=== PATIENT | female | born 1925 | race Caucasian/White ===

== ENCOUNTER → 2017-01-16 | Outpatient (CLI) | payer MEDICARE | END | disposition home or self-care (01) | LOC: GMA 18:08 | PROVIDERS: ATTEND Nurse Practitioner Family | DX: N30.00 Acute cystitis without hematuria (principal) ==

== ENCOUNTER → 2017-04-03 | Outpatient (CLI) | payer MEDICARE | END | disposition home or self-care (01) | LOC: GMAL 10:39 | PROVIDERS: ATTEND Family Medicine | DX: D51.3 Other dietary vitamin B12 deficiency anemia (principal); E55.9 Vitamin D deficiency, unspecified ==

== ENCOUNTER 2017-04-18 13:07 | Emergency (ER) | payer MEDICARE ==
[2017-04-18 13:46] VITALS: TEMP 97.7; O2SAT 95
--- NOTE | 2017-04-18 14:04 | ED.PDOC ---
History of Present Illness - General Chief Complaint: Bite: Animal/Insect/Human Stated Complaint: dog bite to left index finger Time Seen by Provider: 04/18/17 13:57 Source: patient Exam Limitations: no limitations - History of Present Illness Initial Comments: Enriqueta Reddy 89 y/o female stated that she was trying to hold stray dog that was badly injured and she was bitten on her left index finger;stated dog looks like a terrier and was brought to the vet for quarantine. Occurred: just prior to arrival Allergies/Adverse Reactions: Allergies Ciprofloxacin [From Cipro] Allergy (Mild, Unverified 06/16/13 13:05) Clarithromycin [From Biaxin] Allergy (Mild, Unverified 06/16/13 13:05) Statins Allergy (Mild, Unverified 06/16/13 13:05) Doxycycline Allergy (Verified 04/18/17 13:46) Home Medications: Ambulatory Orders Aspirin [Aspirin/Enteric] 81 mg PO AM 06/19/13 Cobalamine Combinations [B-12 1000 1000-400 Mcg] 1 sub SL AM 06/19/13 Ezetimibe [Zetia] 10 mg PO AM 06/19/13 Fish Oil 1,200 mg PO AM 06/19/13 Lisinopril 10 mg PO AM 06/19/13 Omeprazole Magnesium [Prilosec Otc] 20 mg PO AM 06/19/13 HYDROcodone 5MG/APAP 325MG [[place] 5/325] 1 tab PO .Q4H PRN #0 tab 07/15/13 Meclizine HCl [Antivert] 12.5 mg PO Q12H #10 tab 08/10/16 Past Medical History (General) - Patient Medical History Hx Seizures: No Hx Stroke: Yes Hx Asthma: No Hx of COPD: No Hx Cardiac Disorders: No Hx Congestive Heart Failure: No Hx Pacemaker: No Hx Hypertension: Yes Hx Diabetes: No Hx Cancer: Yes Hx MRSA: No - Vaccination History Hx Tetanus, Diphtheria Vaccination: - Unknown Hx Influenza Vaccination: No Hx Pneumococcal Vaccination: Yes - 04/05/17 - Social History Hx Tobacco Use: No Hx Alcohol Use: No Hx Substance Use: No Hx Depression: No Hx Physical Abuse: No Hx Emotional Abuse: No Family Medical History - Family History Mother Family History: Unknown Departure - Departure Disposition: Discharge to Home or Self Care Departure Forms: ED Discharge - Pt. Copy, Patient Portal Self Enrollment Referrals: Cb Tiwari III, MD [Primary Care Provider] - 1-2 Weeks Home Medications: Ambulatory Orders Aspirin [Aspirin/Enteric] 81 mg PO AM 06/19/13 Cobalamine Combinations [B-12 1000 1000-400 Mcg] 1 sub SL AM 06/19/13 Ezetimibe [Zetia] 10 mg PO AM 06/19/13 Fish Oil 1,200 mg PO AM 06/19/13 Lisinopril 10 mg PO AM 06/19/13 Omeprazole Magnesium [Prilosec Otc] 20 mg PO AM 06/19/13 HYDROcodone 5MG/APAP 325MG [[place] 5/325] 1 tab PO .Q4H PRN #0 tab 07/15/13 Meclizine HCl [Antivert] 12.5 mg PO Q12H #10 tab 08/10/16
--- NOTE | 2017-04-18 14:23 | ED.PDOC ---
History of Present Illness - General Chief Complaint: Bite: Animal/Insect/Human Stated Complaint: dog bite to left index finger Time Seen by Provider: 04/18/17 13:57 Source: patient, EMS notes reviewed Exam Limitations: no limitations - History of Present Illness Initial Comments: Enriqueta Reddy 89 y/o female stated that she was bitten on the left index finger by a stray dog which according to her badly hurt dog was taken to the vet for quarantine. Occurred: just prior to arrival Pain - Upper Extremity: mild: Hand, left - left index finger Method of Injury: other - dog bite Improving Factors: rest Worsening Factors: movement Allergies/Adverse Reactions: Allergies Ciprofloxacin [From Cipro] Allergy (Mild, Unverified 06/16/13 13:05) Clarithromycin [From Biaxin] Allergy (Mild, Unverified 06/16/13 13:05) Statins Allergy (Mild, Unverified 06/16/13 13:05) Doxycycline Allergy (Verified 04/18/17 13:46) Home Medications: Ambulatory Orders Aspirin [Aspirin/Enteric] 81 mg PO AM 06/19/13 Cobalamine Combinations [B-12 1000 1000-400 Mcg] 1 sub SL AM 06/19/13 Ezetimibe [Zetia] 10 mg PO AM 06/19/13 Fish Oil 1,200 mg PO AM 06/19/13 Lisinopril 10 mg PO AM 06/19/13 Omeprazole Magnesium [Prilosec Otc] 20 mg PO AM 06/19/13 HYDROcodone 5MG/APAP 325MG [[place] 5/325] 1 tab PO .Q4H PRN #0 tab 07/15/13 Meclizine HCl [Antivert] 12.5 mg PO Q12H #10 tab 08/10/16 Amoxicillin & Pot Clavulanate [Augmentin Xr 1000-62.5 mg] 1 tab PO BID #20 tab 04/18/17 Review of Systems - Review of Systems Constitutional: States: no symptoms reported EENTM: States: no symptoms reported Respiratory: States: no symptoms reported Cardiology: States: no symptoms reported Gastrointestinal/Abdominal: States: no symptoms reported Genitourinary: States: no symptoms reported Musculoskeletal: States: no symptoms reported Skin: States: see HPI Neurological: States: no symptoms reported Past Medical History (General) - Patient Medical History Hx Seizures: No Hx Stroke: Yes Hx Asthma: No Hx of COPD: No Hx Cardiac Disorders: No Hx Congestive Heart Failure: No Hx Pacemaker: No Hx Hypertension: Yes Hx Diabetes: No Hx Cancer: Yes - breast Hx MRSA: No Surgical History: appendectomy, tonsillectomy, other - hysterectomy,arnold- chiari,right mastectomy - Vaccination History Hx Tetanus, Diphtheria Vaccination: - Unknown Hx Influenza Vaccination: No Hx Pneumococcal Vaccination: Yes - 04/05/17 - Social History Hx Tobacco Use: No Hx Alcohol Use: No Hx Substance Use: No Hx Depression: No Hx Physical Abuse: No Hx Emotional Abuse: No Family Medical History - Family History Mother Family History: Unknown Living Status: Physical Exam - Physical Exam General Appearance: Alert, Comfortable Eyes, Ears, Nose, Throat Exam: PERRL/EOMI, normal ENT inspection, TMs normal Neck: non-tender, full range of motion, supple Cardiovascular/Respiratory: regular rate, rhythm, no M/R/G, normal peripheral pulses Abdominal Exam: non-tender, no organomegaly Back Exam: normal inspection, no CVA tenderness, no vertebral tenderness Shoulder Exam: normal inspection, non-tender, no evidence of injury Elbow/Forearm Exam: normal inspection, non-tender, no evidence of injury Wrist Exam: normal inspection, no evidence of injury Neuro/Tendon: normal sensation, normal motor functions, responds to pain Mental Status: alert, oriented x 3 Skin Exam: normal color, warm/dry, other - skin loss volar aspect middle phalanx left index cleanse with hibiclens and covered with sterile dressing Departure - Departure Clinical Impression: Skin laceration Dog bite of finger Qualifiers: Encounter type: initial encounter Qualified Code(s): S61.259A - Open bite of unspecified finger without damage to nail, initial encounter Time of Disposition: 14:33 Disposition: Discharge to Home or Self Care Condition: Good Departure Forms: ED Discharge - Pt. Copy, Patient Portal Self Enrollment Instructions: DI for Animal Bites Referrals: Cb Tiwari III, MD [Primary Care Provider] - 1-2 Weeks Prescriptions: Amoxicillin & Pot Clavulanate [Augmentin Xr 1000-62.5 mg] 1 tab PO BID #20 tab Home Medications: Ambulatory Orders Aspirin [Aspirin/Enteric] 81 mg PO AM 06/19/13 Cobalamine Combinations [B-12 1000 1000-400 Mcg] 1 sub SL AM 06/19/13 Ezetimibe [Zetia] 10 mg PO AM 06/19/13 Fish Oil 1,200 mg PO AM 06/19/13 Lisinopril 10 mg PO AM 06/19/13 Omeprazole Magnesium [Prilosec Otc] 20 mg PO AM 06/19/13 HYDROcodone 5MG/APAP 325MG [[place] 5/325] 1 tab PO .Q4H PRN #0 tab 07/15/13 Meclizine HCl [Antivert] 12.5 mg PO Q12H #10 tab 08/10/16 Amoxicillin & Pot Clavulanate [Augmentin Xr 1000-62.5 mg] 1 tab PO BID #20 tab 04/18/17
[2017-04-18] MEDS ORDERED: TETANUS-DIPHTHERIA TOXOIDS (TD 1 EA SYG IM ONE (14:30)
[2017-04-18] MEDS ORDERED: TETANUS,DIPHTHERIA,PERTUSSIS 1 EA SYG IM ONE (14:34)
[2017-04-18 14:52] VITALS: BP 153/96
== END 2017-04-18 14:51 | disposition home or self-care (01) ==
LOC: ER 13:07
DX: S61.251A Open bite of left index finger without damage to nail, initial encounter (principal); I10 Essential (primary) hypertension; Z86.73 Personal history of transient ischemic attack (TIA), and cerebral infarction without residual deficits; Z85.3 Personal history of malignant neoplasm of breast; Z88.3 Allergy status to other anti-infective agents; Z88.8 Allergy status to other drugs, medicaments and biological substances; Z79.82 Long term (current) use of aspirin; Z23 Encounter for immunization; Z79.899 Other long term (current) drug therapy; W54.0XXA Bitten by dog, initial encounter; Y92.9 Unspecified place or not applicable

== ENCOUNTER → 2017-06-10 | Outpatient (CLI) | payer MEDICARE ==
--- NOTE | 2017-06-19 09:10 | MAM ---
EXAM DESCRIPTION: 3D Screening, Left CLINICAL HISTORY: 89 yearsFemaleSCREENING. Right breast cancer diagnosed June 2013. Right mastectomy. Postmenopausal. HRT taken five or more years ago. No current problems. COMPARISON: 2-D digital screening left breast examination 06/26/2016. No prior reports available. Reports from prior examinations also reviewed. Report from prior examination also reviewed. TECHNIQUE: Left breast CC and MLO projection full-field images, 3-D tomosynthesis digital mammographic technique. Also left breast synthesized CC/ MLO full-field images. CAD not utilized. FINDINGS: Left breast parenchymal density pattern is: Scattered areas of fibroglandular density. No skin thickening or nipple retraction . Left breast solitary microcalcifications. No focal, stellate mass or density, focal asymmetry , and no suspicious microcalcifications left breast. Stable mammograms compared to prior study, taking into account differences in mammographic technique IMPRESSION: BI-RADS CATEGORY: 2 - BENIGN FINDINGS. FOLLOW UP: Routine digital left breast screening, one year interval from May 2017. Written communication explaining the findings and follow-up, will be mailed to the patient and referring health care provider. According to the [employer], yearly mammograms are recommended starting at age 40 and continuing as long as a woman is in good health. Any breast change noted on a breast self-exam should be reported promptly to the patient's healthcare provider. Breast MRI is recommended for women with an approximately 20-25% or greater lifetime risk of breast cancer, including women with a strong family history of breast or ovarian cancer and women who have been treated for Hodgkin's disease. A negative mammographic report should not delay tissue diagnosis in patients with significant clinical history or physical findings. Extremely dense breast tissue limits the sensitivity of digital mammography. Electronically signed by: Richie Hook MD 06/19/2017 9:08 AM CDT
== END ==
LOC: MAMMO 09:00
PROVIDERS: ATTEND Family Medicine
DX: Z12.31 Encounter for screening mammogram for malignant neoplasm of breast (principal)
CPT/HCPCS: 77063; G0202

== ENCOUNTER → 2017-06-17 | Outpatient (CLI) | payer MEDICARE ==
--- NOTE | 2017-06-17 14:36 | MRI ---
MRI left knee without contrast INDICATION: Knee pain medial instability symptoms x10 days TECHNIQUE: Noncontrast MR imaging left knee standard protocol FINDINGS: Mild prepatellar superficial infrapatellar edema. Moderate joint effusion. Multifocal fairly diffuse grade 4 chondrosis medial patellar facet with mild subchondral edema. There is edema in the anterior medial and anterior lateral tibial plateau suggesting hyperextension injury. Small area of contusion or reactive subchondral edema anterior aspect medial femoral condyle at the junction with the trochlea. Multifocal grade 4 chondral fissuring medial femoral condyle midportion and anterior with subchondral edema. Slightly vertical ACL with mild interstitial increased signal distally motion degraded. No sabrina rupture. PCL is intact. No extensor tendon rupture. Diffuse degenerative signal throughout the medial meniscus. No large focal defect. Collateral ligaments are intact. 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 Small Reyes's cyst Slightly vertical ACL but no rupture identified and no pivot shift pattern. Electronically signed by: Syed Bah MD 06/17/2017 2:35 PM CDT
== END | disposition home or self-care (01) ==
LOC: MRI 09:13
PROVIDERS: ATTEND Family Medicine
DX: M25.462 Effusion, left knee (principal); M71.22 Synovial cyst of popliteal space [Baker], left knee; M25.562 Pain in left knee

== ENCOUNTER → 2017-10-04 | Outpatient (CLI) | payer MEDICARE | LOC: GMAL 10:26 | PROVIDERS: ATTEND Family Medicine | DX: D51.3 Other dietary vitamin B12 deficiency anemia (principal); E55.9 Vitamin D deficiency, unspecified ==